=== PATIENT | female | born 1960 | race Caucasian/White ===

== ENCOUNTER → 2017-09-23 | Outpatient (CLI) | payer BC | LOC: LAB 13:16 → LAB SHORT 13:16 | DX: N39.3 Stress incontinence (female) (male) (principal) | CPT/HCPCS: 87086 ==

== ENCOUNTER 2018-09-22 08:25 | Day surgery (SDC) | payer BC ==
[~2018-09-22] VITALS: Ht 167.6 cm; Wt 84.1 kg
[~2018-09-22 08:25] MED LIST: CITA20 PO; Estradiol0.5 MG PO; IBUP400 PO
--- NOTE | 2018-09-22 09:19 | NUR ---
09/22/18 0919 Jaden Gallego CALL LIGHT WITHIN REACH
== END 2018-09-22 11:11 | disposition home or self-care (01) ==
LOC: ORSCSDS 08:25
PROVIDERS: Student in an Organized Health Care Education/Training Program
PROC: 0DJD8ZZ Inspection of Lower Intestinal Tract, Via Natural or Artificial Opening Endoscopic (ICD-10-PCS; principal; 2018-09-22 09:45)
DX: Z12.11 Encounter for screening for malignant neoplasm of colon (principal); K64.4 Residual hemorrhoidal skin tags; K57.30 Diverticulosis of large intestine without perforation or abscess without bleeding; F32.9 Major depressive disorder, single episode, unspecified; I10 Essential (primary) hypertension; D64.9 Anemia, unspecified; E66.01 Morbid (severe) obesity due to excess calories; Z68.31 Body mass index [BMI] 31.0-31.9, adult; Z79.899 Other long term (current) drug therapy
CPT/HCPCS: J2704; J7120